=== PATIENT | female | born 1985 | race Caucasian/White ===

== ENCOUNTER → 2016-11-26 | Outpatient (CLI) | payer BC | LOC: MC.RAD 09:45 | DX: N63 Unspecified lump in breast (principal) ==

== ENCOUNTER → 2020-11-11 | Outpatient (CLI) | payer BC | LOC: MC.RAD 12:56 | DX: N63.20 Unspecified lump in the left breast, unspecified quadrant (principal); R92.0 Mammographic microcalcification found on diagnostic imaging of breast ==

== ENCOUNTER → 2020-11-12 | Outpatient (CLI) | payer BC | LOC: MC.RAD 09:53 | DX: N63.20 Unspecified lump in the left breast, unspecified quadrant (principal); Z98.82 Breast implant status | CPT/HCPCS: 30635 ==